=== PATIENT | male | born 1940 | race Hispanic/Latino ===

== ENCOUNTER 2017-11-15 09:03 | Inpatient (IN) | payer OTHER ==
[~2017-11-15] VITALS: Ht 167.6 cm; Wt 78.6 kg
[2017-11-15 09:30] LABS: BASOPHILS % (AUTO) 1.2 % (0.0-5.0); EOSINOPHILS % (AUTO) 5.9 % (0.0-8.0); HEMATOCRIT 39.1 % (42-54); LYMPHOCYTES % (AUTO) 33.5 % (21.0-51.0); MEAN CORPUSCULAR HEMOGLOBIN 28.6 pg (27.0-33.0); MEAN CORPUSCULAR HGB CONC 34.2 g/dL (32.0-36.0); MEAN CORPUSCULAR VOLUME 83.5 fL (79-99); MONOCYTES % (AUTO) 9.7 % (3.0-13.0); NEUTROPHILS % (AUTO) 49.7 % (40.0-77.0); PLATELET COUNT (AUTO) 236 K/uL (130-400); RED BLOOD CELL COUNT(AUTO) 4.69 MIL/uL (4.50-6.20); RED CELL DISTRIBUTION WIDTH 19.5 % (11.0-15.5); WHITE BLOOD COUNT (AUTO) 7.6 K/uL (4.8-10.8)
[2017-11-15 09:44] LABS: CREATININE 1.7 mg/dL (0.5-1.5); POTASSIUM 4.1 mmol/L (3.5-5.1)
[2017-11-15 09:48] LABS: INR 1.41 (0.85-1.15); PROTHROMBIN TIME 14.7 SEC (9.6-11.6)
[2017-11-15 09:49] LABS: ALBUMIN 3.7 g/dL (3.5-5.0); BILIRUBIN,TOTAL 0.6 mg/dL (0.2-1.0); TOTAL PROTEIN, SERUM 7.7 g/dL (6.0-8.3)
[2017-11-15 10:08] LABS: APPEARANCE,URINE Clear (CLEAR); BILIRUBIN,URINE Negative (NEGATIVE); COLOR,URINE Yellow (YELLOW); GLUCOSE, URINE (UA) Negative (NEGATIVE); KETONES,URINE Negative (NEGATIVE); LEUKOCYTE ESTERASE ,URINE Negative (NEGATIVE); NITRATE,URINE Negative (NEGATIVE); OCCULT BLOOD,URINE Negative (NEGATIVE); PROTEIN,URINE Negative (NEGATIVE); UROBILINOGEN,URINE 0.2 mg/dL (0.2-1.0)
[2017-11-15 10:15] LABS: AMPHET/METH SCREEN,URINE NEGATIVE (NEGATIVE); BARBITURATE SCREEN, URINE NEGATIVE (NEGATIVE); BENZODIAZEPINES SCREEN,URINE NEGATIVE (NEGATIVE); CANNABINOID SCREEN,URINE NEGATIVE (NEGATIVE); COCAINE SCREEN,URINE NEGATIVE (NEGATIVE); OPIATE SCREEN,URINE NEGATIVE (NEGATIVE); PHENCYCLIDINE SCREEN,URINE NEGATIVE (NEGATIVE)
[2017-11-15 16:55] VITALS: BP 156/93
[2017-11-15 17:05] LABS: CREATINE KINASE MB 1.4 ng/mL (0.5-3.6)
[2017-11-15] MEDS ORDERED: CARV25TA PO (17:12)
[2017-11-15] MEDS ORDERED: POTA10TA18 PO (17:12)
[2017-11-15] MEDS ORDERED: LORA-705 PO (17:12)
[2017-11-15] MEDS ORDERED: ATOR10TA69 PO (17:12)
[2017-11-15] MEDS ORDERED: FURO40TA5 PO (17:12)
[2017-11-15] MEDS ORDERED: MV,M1TAB4 PO (17:12)
[2017-11-15] MEDS ORDERED: RIVA15TA PO (17:12)
[2017-11-15] MEDS ORDERED: LOSA50TA37 PO (17:12)
[2017-11-15 19:00] VITALS: BP 115/70
[2017-11-15] MEDS: FAMOTIDINE 20MG TAB 20 MG TAB PO SCH (20:05)
[2017-11-15 23:00] VITALS: BP_SYST 126; BP_SYST 157; BP_DIAS 77; BP_DIAS 86
[2017-11-15 23:39] LABS: CREATINE KINASE MB 1.3 ng/mL (0.5-3.6); CREATINE KINASE, TOTAL 280 U/L (21-232); MYOGLOBIN 94 ng/mL (10-92); TROPONIN I < 0.04 ng/mL (0.00-0.06)
[2017-11-16 03:15] VITALS: BP 127/70
[2017-11-16 05:08] LABS: HEMATOCRIT 38.7 % (42-54); MEAN CORPUSCULAR HEMOGLOBIN 28.8 pg (27.0-33.0); MEAN CORPUSCULAR HGB CONC 34.3 g/dL (32.0-36.0); MEAN CORPUSCULAR VOLUME 84.1 fL (79-99); PLATELET COUNT (AUTO) 200 K/uL (130-400); RED CELL DISTRIBUTION WIDTH 19.6 % (11.0-15.5); WHITE BLOOD COUNT (AUTO) 6.9 K/uL (4.8-10.8)
[2017-11-16 05:31] LABS: CARBON DIOXIDE 29 mmol/L (21-32); CHLORIDE 105 mmol/L (101-111); CREATINE KINASE MB 1.3 ng/mL (0.5-3.6); CREATINE KINASE, TOTAL 230 U/L (21-232); CREATININE 1.5 mg/dL (0.5-1.5); GLOMERULAR FILTR. RATE CALC 48 mL/min (>60); GLUCOSE,RANDOM 130 mg/dL (70-105); MYOGLOBIN 89 ng/mL (10-92); POTASSIUM 3.8 mmol/L (3.5-5.1); SODIUM SERUM 142 mmol/L (136-145); TROPONIN I < 0.04 ng/mL (0.00-0.06); UREA NITROGEN, BLOOD 27 mg/dL (7-18)
[2017-11-16 07:10] VITALS: BP 148/65
[2017-11-16] MEDS ORDERED: ACETAMINOPHEN 325 MG TAB PO PRN (07:30)
[2017-11-16] MEDS ORDERED: ACETAMINOPHEN 325 MG TAB ONE (07:32)
[2017-11-16] MEDS: FAMOTIDINE 20MG TAB 20 MG TAB PO SCH (07:34)
[2017-11-16] MEDS ORDERED: ATOR40TA71 PO (10:22)
[2017-11-16 11:27] VITALS: BP 141/85
[2017-11-16 15:45] VITALS: BP 151/62
[2017-11-16 19:22] VITALS: BP 136/87
[2017-11-16] MEDS: CARVEDILOL 25 MG TABLET PO SCH (21:54)
[2017-11-16 23:00] VITALS: BP 131/71
[2017-11-17 03:30] VITALS: BP 144/73
[2017-11-17 07:26] VITALS: BP 129/81
[2017-11-17] MEDS ORDERED: LOSARTAN 50 MG TABLET PO SCH (09:00)
[2017-11-17] MEDS ORDERED: LORATADINE 10 MG TABLET PO SCH (09:00)
[2017-11-17] MEDS ORDERED: POTASSIUM CHLORIDE 10 MEQ/TAB.SA PO SCH (09:00)
[2017-11-17] MEDS ORDERED: RIVAROXABAN 15 MG TABLET PO SCH (09:00)
[2017-11-17] MEDS ORDERED: MULTIVITAMIN WITH MINERALS TABLET PO SCH (09:00)
[2017-11-17] MEDS ORDERED: FUROSEMIDE 40 MG TABLET PO SCH (09:00)
[2017-11-17] MEDS: FAMOTIDINE 20MG TAB 20 MG TAB PO SCH (10:01)
[2017-11-17] MEDS: CARVEDILOL 25 MG TABLET PO SCH (10:04)
[2017-11-17 11:06] VITALS: BP 128/73
[2017-11-17 16:00] VITALS: BP 134/83
== END 2017-11-17 18:11 | disposition home or self-care (01) | DRG 69 ==
LOC: EDH 09:03 → EDHIP 14:30 → 2CH 16:33 → 2BH 11-16 22:39
PROVIDERS: ADMIT Internal Medicine Nephrology; ATTEND Internal Medicine Nephrology
DX: G45.9 Transient cerebral ischemic attack, unspecified (principal); I48.2 Chronic atrial fibrillation; I10 Essential (primary) hypertension; Z82.49 Family history of ischemic heart disease and other diseases of the circulatory system; E78.5 Hyperlipidemia, unspecified; Z79.01 Long term (current) use of anticoagulants; R20.0 Anesthesia of skin
CPT/HCPCS: 36415; 70450; 70551; 71045; 80048; 80053; 80305; 81003; 82550; 82553; 83874; 84484; 85025; 85027; 85610; 85730; 92522; 92610; 93005; 93306; 93880